=== PATIENT | female | born 1980 | race African-American/Black ===

== ENCOUNTER 2017-02-14 08:30 | Emergency (ER) ==
[2017-02-14 08:49] VITALS: BP 117/61
[2017-02-14] MEDS ORDERED: ROCEPHIN IM ONE (09:16)
[2017-02-14] MEDS ORDERED: SOLU-MEDROL IM ONE (09:16)
[2017-02-14] MEDS ORDERED: XYLOCAINE-MPF 1% INJ ONE (09:16)
--- NOTE | 2017-02-14 09:20 | PROVIDER DOCUMENTATION ---
HPI-EENT General - General Chief Complaint: Cold Symptoms Stated Complaint: SINUS PAIN Time Seen by Provider: 02/14/17 08:54 Allergies/Adverse Reactions: Patient Allergies Allergy/AdvReac Type Severity Reaction Status Date / Time No Known Allergies Allergy Verified 02/14/17 08:49 Home Medications: Home Medication List Medication Instructions Recorded Confirmed Last Taken Type No Home Medications 02/14/17 02/14/17 Unknown History - History of Present Illness-EENT General Nature of Presenting Problem: pt is a 36 y/o F that presents to the ER with cough/congestion, headache, sinus congestion, and fever. reports symptoms been about 4 to 5 days. denies n/v/d. EENT Location: reports: facial Quality of Pain: reports: pressure Severity: reports: mild Onset/Duration: reports: gradual, 4 days ago Timing: reports: still present, constant Prearrival Treatment: Initiated over the counter meds Associated Symptoms: reports: cough, facial pain/swelling, nasal congestion/ drainage, sinus infection Locality of Occurance: Home Similar Symptoms Previously?: Yes Recently seen or treated by another doctor?: No Review of Systems - Adult - REVIEW OF SYSTEMS - ADULT Constitutional: reports: fever. denies: chills Eyes: reports: no symptoms reported Ears, Nose, Mouth & Throat: reports: sinus problem. denies: ear pain, throat pain, throat swelling Cardiovascular: denies: chest pain, palpitations Respiratory: reports: cough. denies: pleurisy, wheezing Gastrointestinal: reports: no symptoms reported Genitourinary: reports: no symptoms reported Musculoskeletal: reports: no symptoms reported Integumentary: reports: no symptoms reported Neurological: reports: headache/migraines. denies: dizziness/vertigo Psychiatric: reports: no symptoms reported Endocrine: reports: no symptoms reported Hematologic/Lymphatic: reports: no symptoms reported Allergic/Immunologic: reports: no symptoms reported All Other Systems: Reviewed and Negative Past History - Adult - PAST MEDICAL HISTORY-ADULT Review of Records: reports: Old Records Reviewed, Nursing Assessment Review, Social history reviewed & non-contributory. Gastrointestinal: reports: GERD - PRIOR SURGERIES/PROCEDURES Surgical/Procedure History: reports: hysterectomy, orthopedic (extremity) - PRIOR HOSPITALIZATIONS Prior Hospitalizations: reports: none - IMMUNIZATION STATUS Childhood Immunizations: See Nurse Assessment Flu Vaccine: See Nurse Assessment - FAMILY HISTORY Family History: reviewed, not pertinent - SOCIAL HISTORY Smoking: non-smoker Living Situation: family Physical Exam- EENT - Physical Exam EENT Initial Vital Signs Reviewed: Yes General Appearance: alert, no apparent distress Eye Exam: bilateral eye: normal inspection, PERRL Ear Exam: bilateral ear: auricle normal, canal normal, TM normal Nasal Exam: discharge. negative: sinus tenderness Throat Exam: normal mouth inspection, pharynx normal Neck: full range of motion, normal inspection. negative: lymphadenopathy Respiratory: lungs clear, normal breath sounds, no respiratory distress, no accessory muscle use Cardiovascular: regular rate, rhythm, no edema, no murmur Abdominal Exam: normal bowel sounds, non tender, soft, no organomegaly, no pulsatile mass Extremity: normal range of motion, normal inspection Integumentary: normal color, warm/dry Neurologic: grossly normal, no motor/sensory deficits Psych/Mental Status: normal mood/affect, normal thought content, normal thought process, oriented x 3 Progress - PLAN OF CARE/RESULTS Progress/Plan/Lab Results: Vital Signs Temp Pulse Resp BP Pulse Ox 02/14/17 08:44 98.4 F 78 18 117/61 100 No Known Allergies Allergy (Verified 02/14/17 08:49) No Home Medications 02/14/17 pt will be d/ chome Orders Category Date Time Status CefTRIAXONE [Rocephin] Med 02/14/17 09:16 Discontinued 1 gm IM NOW ONE Lidocaine 1% Pf [Xylocaine-Mpf 1%] Med 02/14/17 09:16 Discontinued 5 ml INJ NOW ONE Methylprednisolone Sod Succ [Solu-Medrol] Med 02/14/17 09:16 Discontinued 125 mg IM NOW ONE pt will be d/c home f/u with pcp, rx given, pt was clinically stable Departure - Departure Time of Disposition Order: 09:14 DIAGNOSIS: URI (upper respiratory infection) Qualifiers: URI type: acute nasopharyngitis (common cold) Qualified Code(s): J00 - Acute nasopharyngitis [common cold] Disposition: HOME 01 Certified Medical Emergency: Emergent Condition: Stable Additional Instructions: ED Follow Up Instructions: You have been treated by a care provider in the Emergency Department. These instructions are being provided to you so you can have an understanding of how to care for yourself upon discharge. Upon discharge from the Emergency Department, you are responsible for making arrangements for follow-up care by a physician of your choice. Take all prescribed medications as directed. Return to the Emergency Department immediately for any new or worsening symptoms. You may call the Physician Referral phone number at [phone] to obtain a list of Physicians who are taking new patients. Instructions: Upper Respiratory Infection, Adult, [id number] Attestation - Scribe Verification/Attestation Scribe:: Shree Mendez Acting as Scribe for:: Karl Mora Scribe documention review:: This chart was documented by a scribe and accurately reflects the service the provider performed and the decisions made by the provider. Physician Attestation - Physician Attestation I, the provider, attest to the following statement:: Karl Mora Physician documentation Attestation:: This documentation recorded by the scribe accurately reflects the service I personally performed and the decisions made by me.
== END 2017-02-14 10:14 | disposition home or self-care (01) ==
LOC: P.ED 08:30
DX: J00 Acute nasopharyngitis [common cold] (principal); R05 Cough; R09.81 Nasal congestion; R51 Headache; R50.9 Fever, unspecified; K21.9 Gastro-esophageal reflux disease without esophagitis
CPT/HCPCS: 96372; J0696; J2930